=== PATIENT | male | born 1945 | race Caucasian/White ===

== ENCOUNTER 2018-04-22 11:26 | Day surgery (SDC) | payer OTHER ==
[~2018-04-22] VITALS: Ht 180.3 cm; Wt 124.2 kg
[~2018-04-22 11:26] MED LIST: HYDROCODON-ACE1 EAC7 PO; NAPROSYN-EC500 MG PO; ZESTORETIC 20-1 EAC1 PO
[2018-04-22 12:17] VITALS: BP 123/66
[2018-04-22 15:20] VITALS: BP 134/67
== END 2018-04-22 15:45 | disposition home or self-care (01) ==
LOC: SDC 11:26
DX: H44.731 Retained (nonmagnetic) (old) foreign body in lens, right eye (principal); H43.01 Vitreous prolapse, right eye; H33.311 Horseshoe tear of retina without detachment, right eye; I10 Essential (primary) hypertension; F41.9 Anxiety disorder, unspecified; F17.200 Nicotine dependence, unspecified, uncomplicated
CPT/HCPCS: J0690; J3300